=== PATIENT | male | born 1985 | race Caucasian/White ===

== ENCOUNTER 2024-04-21 14:34 | Outpatient (CLI) | payer OTHER, SELFPAY ==
--- NOTE | ~2024-04-21 | XR_ITS ---
XR abdomen/kub 1V 04/21/2024 14:58 Indication: Flank pain Procedure: KUB Comparison: No prior studies for comparison. Findings: There is a left renal stone. Bowel gas pattern nonobstructive. There is a right pelvic phle bolith. No acute osseous abnormality. Impression: 1: Left nephrolithiasis. Reviewed, dictated and finalized at location B. Impression: 1: Left nephrolithiasis.
--- NOTE | ~2024-04-21 | CT_ITS ---
Non-contrast CT scan of the Abdomen and Pelvis Clinical indication: Flank pain Technique: 2.5 mm axial scans were obtained through the abdomen and pelvis without intravenous or or al contrast. Dose reduction technique was used on this scan by utilizing automated exposure control a nd iterative reconstruction technique. The dose-length product (DLP) was 630.45 mGy-cm. Findings: Images through the lung bases reveal no abnormalities. Suspected 2 mm mid right ureteral stone. There is mild right hydronephrosis. There are additional jose antonio ateral nonobstructing renal stones, measuring up to 3 mm in maximum size. No left ureteral stone or l eft hydronephrosis. The liver, spleen, pancreas, gallbladder, and adrenals appear normal. There is no aortic aneurysm. There is no evidence of bowel obstruction. Images through the pelvis were performed. There is no evidence of ascites or lymphadenopathy. Urinary bladder unremarkable. No pelvic mass seen. Impression: Probable 2 mm mid right ureteral stone with mild right hydronephrosis. Additional bilateral nonobstructing nephrolithiasis, as detailed above. Reviewed, dictated and finalized at [facility]. Impression: Probable 2 mm mid right ureteral stone with mild right hydronephrosis. Additional bilateral nonobstructing nephrolithiasis, as detailed above.
== END 2024-04-21 14:35 ==
PROVIDERS: PCP Urology; Visit Provider Urology
DX: N13.2 Hydronephrosis with renal and ureteral calculous obstruction (principal)
CPT/HCPCS: 74018; 74176